=== PATIENT | male | born 1995 | race Two or more races ===

== ENCOUNTER 2018-11-22 15:52 | Emergency (ER) | payer OTHER ==
[2018-11-22] MEDS ORDERED: LIDOCAINE 1% INJ-PF (10 MG/ML) 30 ML SDV INJ ONE (16:01)
[2018-11-22] MEDS ORDERED: CEFTRIAXONE INJ 250 MG VIAL IM ONE (16:01)
[2018-11-22] MEDS ORDERED: AZITHROMYCIN 250 MG TABLET PO ONE (16:01)
--- NOTE | 2018-11-22 16:13 | ER Document Report ---
HPI - HPI Time Seen by Provider: 11/22/18 16:01 Pain Level: 2 Notes: Patient is a 23-year-old male who presents emergency department for possible exposure to chlamydia. Patient states that he does have some burning with urination and he has been sexually active. He is not aware if his partner has any disease. He has not noticed any discharge, swelling, redness, or testicular pain. He is otherwise eating and drinking without difficulty. He is having normal bowel movements. Denies drug allergies. Denies any headache, fever, URI, sore throat, chest pain, palpitations, syncope, cough, shortness of breath, wheeze, dyspnea, abdominal pain, nausea/vomiting/diarrhea, urinary retention, loss of control of bowel or bladder, numbness/tingling, or rash. - ROS Systems Reviewed and Negative: Yes All other systems reviewed and negative - CONSTITUTIONAL Constitutional: DENIES: Fever, Chills - CARDIOVASCULAR Cardiovascular: DENIES: Chest pain - RESPIRATORY Respiratory: DENIES: Trouble Breathing - GASTROINTESTINAL Gastrointestinal: DENIES: Abdominal Pain - URINARY Urinary: REPORTS: Dysuria Past Medical History - Social History Smoking Status: Never Smoker Family History: Reviewed & Not Pertinent Patient has suicidal ideation: No Patient has homicidal ideation: No Renal/ Medical History: Denies: Hx Peritoneal Dialysis Vertical Provider Document - CONSTITUTIONAL Agree With Documented VS: Yes Notes: PHYSICAL EXAMINATION: GENERAL: Well-appearing, well-nourished and in no acute distress. HEAD: Atraumatic, normocephalic. EYES: Pupils equal round and reactive to light, extraocular movements intact, sclera anicteric, conjunctiva are normal. ENT: Nares patent and without discharge. oropharynx clear without exudates. No tonsilar hypertrophy or erythema. Moist mucous membranes. NECK: Normal range of motion, supple without lymphadenopathy LUNGS: Breath sounds clear to auscultation bilaterally and equal. No wheezes rales or rhonchi. HEART: Regular rate and rhythm without murmurs, rubs, gallops. ABDOMEN: Soft, nontender, nondistended abdomen. No guarding, no rebound. Normal bowel sounds present. No CVA tenderness bilaterally. : Uncircum. No urethral discharge. No erythema, ulceration, lesion, or inguinal adenopathy. No scrotal swelling. No testicular/penile tenderness. Musculoskeletal: FROM to passive/active. Strength 5+/5. Extremities: No cyanosis, clubbing, or edema b/l. Peripheral pulses 2+. Capillary refill less than 3 seconds. NEUROLOGICAL: Normal speech, normal gait. PSYCH: Normal mood, normal affect. SKIN: Warm, Dry, normal turgor, no rashes or lesions noted. - INFECTION CONTROL TRAVEL OUTSIDE OF THE [place] IN LAST 30 DAYS: No Course - Re-evaluation Re-evalutation: 11/22/18 Patient is an afebrile, well-hydrated, 23-year-old male who presents the emergency department with dysuria and possible exposure to STD. Vitals are acceptable without significant tachycardia, tachypnea, or hypoxia. PE is otherwise unremarkable. Urinalysis unremarkable with urine culture pending. Chlamydia gonorrhea tests are pending. Patient did receive Zithromax and Rocephin. No further labs or imaging warranted. Low suspicion/risk for acute appendicitis, bowel obstruction, acute cholecystitis, perforated diverticulitis, incarcerated hernia, pancreatitis, perforated ulcer, peritonitis, sepsis, testicular torsion, or other systemic emergent condition at this time. Patient is aware that his condition can change from initial presentation and he needs to monitor symptoms closely and seek medical attention if any acute changes. Conservative measures otherwise for symptoms. Recheck with PCM in 3-5 days. Co nsider consult with a urologist. Return to the ED with any worsening/concerning symptoms otherwise as reviewed in discharge. Patient is in agreement. - Vital Signs Vital signs: Temp Pulse Resp BP Pulse Ox 98.3 F 71 16 147/86 H 98 11/22/18 16:06 11/22/18 16:06 11/22/18 16:06 11/22/18 16:06 11/22/18 16:06 Discharge - Discharge Clinical Impression: Dysuria, Possible exposure to STD Condition: Stable Disposition: HOME, SELF-CARE Additional Instructions: Maintain fluid intake Proper hygienic technique Keep the skin clean Safe sexual practices with condoms everytime Tylenol/ibuprofen as needed Check in with the health department this week for further testing if warranted Your chlamydia/Ghon test are pending and you will be notified if positive results; you may call in 1 day for the results as well F/u with your PCM/urology in 3-5 days for a recheck Return to the ED with any development of SPENCER/fever, trouble with vision, eye redness, worsening pain, urethral discharge, urinary retention, blood in the urine, flank pain, abdominal pain, n/v, Chest Pain, shortness of breath, joint pains, trouble breathing, or any other worsening/concerning symptoms as needed otherwise. [facility]NO [facility]AL MD] - Follow up in 3-5 days
[2018-11-22 16:41] LABS: APPEARANCE,URINE CLEAR; BILIRUBIN,URINE NEGATIVE (NEGATIVE); COLOR,URINE YELLOW; GLUCOSE, URINE NEGATIVE (NEGATIVE); KETONES,URINE NEGATIVE (NEGATIVE); LEUKOCYTE ESTERASE,URINE NEGATIVE (NEGATIVE); NITRITE,URINE NEGATIVE (NEGATIVE); PROTEIN,URINE NEGATIVE (NEGATIVE); URINE SPECIFIC GRAVITY 1.018; UROBILINOGEN,URINE NEGATIVE mg/dL (<2.0)
[2018-11-22 17:02] VITALS: BP 129/83
[2018-11-22 18:02] LABS: CHLAM PCR NOT DETECTED (NOT DETECT); GON PCR NOT DETECTED (NOT DETECT)
== END 2018-11-22 16:56 | disposition home or self-care (01) ==
LOC: ER 15:52
DX: R30.0 Dysuria (principal); Z20.2 Contact with and (suspected) exposure to infections with a predominantly sexual mode of transmission
CPT/HCPCS: 99283; 96372; 87086; 81001; 87491; 87591; J3490; J0696

== ENCOUNTER 2020-01-01 12:17 | Emergency (ER) | payer OTHER ==
[2020-01-01 12:23] VITALS: BP 143/89
[2020-01-01] MEDS ORDERED: AZITHROMYCIN 250 MG TABLET PO ONE (12:29)
[2020-01-01] MEDS ORDERED: LIDOCAINE 1% INJ-PF (10 MG/ML) 30 ML SDV IM ONE (12:29)
[2020-01-01] MEDS ORDERED: CEFTRIAXONE INJ 250 MG VIAL IM ONE (12:29)
[2020-01-01] MEDS ORDERED: METRONIDAZOLE 500 MG TABLET PO ONE (12:29)
--- NOTE | 2020-01-01 12:31 | ER Document Report ---
HPI - HPI Time Seen by Provider: 01/01/20 12:22 Notes: 24-year-old male presented emergency department with chief complaint of burning with urination. He states he believes he has either chlamydia or gonorrhea. He reports he has 1 sexual partner however they had unprotected sex a few days ago. Patient denies any fevers. Past Medical History - General Information source: Patient - Social History Smoking Status: Never Smoker Frequency of alcohol use: Social Drug Abuse: None Family History: Reviewed & Not Pertinent - Medical History Medical History: Negative Renal/ Medical History: Denies: Hx Peritoneal Dialysis Surgical Hx: Negative - Immunizations Immunizations up to date: Yes Vertical Provider Document - CONSTITUTIONAL Notes: PHYSICAL EXAMINATION: GENERAL: Well-appearing, well-nourished and in no acute distress. HEAD: Atraumatic, normocephalic. EYES: Pupils equal round extraocular movements intact, conjunctiva are normal. ENT: Nares patent NECK: Normal range of motion LUNGS: No respiratory distress Musculoskeletal: Normal range of motion NEUROLOGICAL: Normal speech, normal gait. PSYCH: Normal mood, normal affect. SKIN: Warm, Dry, normal turgor, no rashes or lesions noted. - INFECTION CONTROL TRAVEL OUTSIDE OF THE [place] IN LAST 30 DAYS: No Course - Re-evaluation Re-evalutation: 01/01/20 12:33 Pt tested for chlamydia and gonorrhea. Patient treated empirically for chlamydi a, gonorrhea and trichomonas. Patient discharged home. - Vital Signs Vital signs: Temp Pulse Resp BP Pulse Ox 97.5 F 70 16 143/89 H 98 01/01/20 12:22 01/01/20 12:22 01/01/20 12:22 01/01/20 12:22 01/01/20 12:22 Discharge - Discharge Clinical Impression: Dysuria Condition: Stable Disposition: HOME, SELF-CARE Additional Instructions: You were seen in the emergency department with concern for possible STD. Your testing is pending and will take several hours to come back. You were treated here in the emergency department for chlamydia, gonorrhea and trichomonas. This does not mean you will test positive for these we just treated you empirically in case you are positive. Please refrain from unprotected sexual activity for the next 7 to 10 days if you are positive. Follow-up with the health department for repeat testing.
[2020-01-01 14:26] LABS: CHLAM PCR NOT DETECTED (NOT DETECT)
== END 2020-01-01 13:11 | disposition home or self-care (01) ==
LOC: ER 12:17
DX: R30.0 Dysuria (principal); Z20.2 Contact with and (suspected) exposure to infections with a predominantly sexual mode of transmission
CPT/HCPCS: 99283; 96372; 87491; 87591; J3490; J0696